=== PATIENT | male | born 1960 | race Caucasian/White ===

== ENCOUNTER → 2020-06-05 15:05 | Outpatient (CLI) | payer OTHER, SELFPAY ==
--- NOTE | ~2020-06-05 | MR_ITS ---
EXAMINATION: MR cervical spine wo con EXAM DATE: 06/05/2020 15:54 INDICATION: Neck pain, bilateral shoulder and arm pain. TECHNIQUE: Multi-sequential, multiplanar MR images of the cervical spine were obtained without contra st. Axial T2, axial T2 MERGE sequence. Sagittal T1, T2, T2 fat saturation images also obtained. Th ere is no prior study for comparison. FINDINGS: There is moderate disc disease at C5-6 and 6-7. There is 2 mm anterolisthesis C4 on C5. Th ere is 3 mm anterolisthesis C7 on T1. The vertebral bodies are otherwise aligned. The spinal cord si gnal intensity and intrinsic morphology is normal. Cervicomedullary junction is normal in appearance. Level by level evaluation: C2-C3: Disc does not extend beyond the endplate margin. Uncovertebral joint arthropathy: None. Facet joint arthropathy: Mild to moderate right, mild left. Neural foraminal stenosis: No stenosis. Central canal stenosis: No stenosis. C3-C4: There is a mild diffuse disc bulge. Uncovertebral joint arthropathy: Mild bilateral. Facet joint arthropathy: Mild to moderate bilateral. Neural foraminal stenosis: Mild left. Central canal stenosis: No stenosis. C4-C5: There is a mild diffuse disc bulge. Uncovertebral joint arthropathy: Mild bilateral. Facet joint arthropathy: Moderate bilateral. Neural foraminal stenosis: Mild right. Central canal stenosis: No stenosis. C5-C6: There is a mild to moderate diffuse disc bulge. Uncovertebral joint arthropathy: Moderate bilateral. Facet joint arthropathy: Moderate bilateral. Neural foraminal stenosis: Moderate left, mild to moderate right. Central canal stenosis: Mild. C6-C7: There is a mild to moderate diffuse disc bulge. Uncovertebral joint arthropathy: Moderate to severe. Facet joint arthropathy: Mild to moderate. Neural foraminal stenosis: Moderate right, mild to moderate left. Central canal stenosis: Mild. C7-T1: Disc does not extend beyond the endplate margin. Uncovertebral joint arthropathy: Moderate left, mild right. Facet joint arthropathy: Moderate to severe left, moderate right. Neural foraminal stenosis: Moderate bilateral. Central canal stenosis: No stenosis. IMPRESSION: 1. Overall moderate lower cervical spondylosis. Reviewed, dictated and finalized at location A.
== END ==
PROVIDERS: Visit Provider Psychiatry & Neurology Neurology
DX: M48.02 Spinal stenosis, cervical region (principal); M47.892 Other spondylosis, cervical region
CPT/HCPCS: 72141

== ENCOUNTER 2024-10-09 07:49 | Emergency (ER) | payer OTHER, SELFPAY ==
--- NOTE | ~2024-10-09 | XR_ITS ---
EXAMINATION: XR shoulder RT min 2V DATE: 10/09/2024 09:00 INDICATION: Right shoulder injury. TECHNIQUE: 4 views of right shoulder were obtained. COMPARISON: None. FINDINGS: Alignment is normal. No fracture. There is mild osteoarthritis of glenohumeral joint and se tessy osteoarthritis of acromioclavicular joint. IMPRESSION: 1. Polyarticular osteoarthritis. Reviewed, dictated and finalized at location A. [place] CASHIER
--- NOTE | ~2024-10-09 | XR_ITS ---
XR shoulder LT min 2V Ordering provider: Karla Ponce III, DO History: . injury . Comparison: None. FINDINGS: BONES: No acute fracture or dislocation. JOINT SPACES: The acromioclavicular joint shows mild osteoarthritic changes. The glenohumeral joint i s normal. SOFT TISSUES: Normal. IMPRESSION: No acute osseous abnormality left shoulder. Reviewed, dictated and finalized at location A. WARE MANAGER
--- NOTE | ~2024-10-09 | XR_ITS ---
EXAMINATION: XR humerus RT DATE: 10/09/2024 09:00 INDICATION: Right humerus injury. TECHNIQUE: 2 views of right humerus were obtained. COMPARISON: None. FINDINGS: Bone alignment is normal. No fracture. There is mild osteoarthritis of glenohumeral joint a nd severe osteoarthritis of acromioclavicular joint. IMPRESSION: 1. Polyarticular osteoarthritis. Reviewed, dictated and finalized at location A. RION ADMINISTRATOR
--- NOTE | ~2024-10-09 | XR_ITS ---
EXAMINATION: XR humerus LT DATE: 10/09/2024 09:00 INDICATION: Left humerus injury. TECHNIQUE: 2 views of left humerus were obtained. COMPARISON: None. FINDINGS: Alignment is normal. No acute fracture. There are old healed left rib fractures. There is m ild osteoarthritis of glenohumeral joint and severe osteoarthritis of the acromioclavicular joint. IMPRESSION: 1. Polyarticular osteoarthritis. Reviewed, dictated and finalized at location A. ING MACHINE OPERATOR ELECTROSLAG
[2024-10-09 07:55] VITALS: BP 175/87; PULSE 71; RESP 20; TEMP 36.5; O2SAT 97
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
[2024-10-09 09:22] VITALS: BP 170/88; PULSE 77; RESP 20; TEMP 36.6; O2SAT 98
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
== END 2024-10-09 10:52 | disposition home or self-care (01) ==
PROVIDERS: Emergency Provider Emergency Medicine
DX: S46.211A Strain of muscle, fascia and tendon of other parts of biceps, right arm, initial encounter (principal); F17.210 Nicotine dependence, cigarettes, uncomplicated; Z79.84 Long term (current) use of oral hypoglycemic drugs; Z79.899 Other long term (current) drug therapy; M19.012 Primary osteoarthritis, left shoulder; M19.011 Primary osteoarthritis, right shoulder; V28.49XA Other motorcycle driver injured in noncollision transport accident in traffic accident, initial encounter
CPT/HCPCS: 73030; 73060; 99284; A4565

== ENCOUNTER 2024-10-16 12:08 | Outpatient (CLI) | payer OTHER, SELFPAY ==
--- NOTE | ~2024-10-16 | MR_ITS ---
EXAMINATION: MR elbow RT wo con DATE: 10/16/2024 12:45 INDICATION: Right biceps tendon rupture post lifting injury one week prior TECHNIQUE: Magnetic resonance imaging (MRI) of the right elbow was performed without intravenous cont rast. Sequences included coronal, axial, and sagittal PD-weighted FS FSE and coronal, axial, and sagi ttal PD-weighted FSE. COMPARISON: None FINDINGS: Osseous/other: Normal alignment. Normal marrow signal with no marrow edema, fracture, osteochondral lesion or patho logic marrow replacing process. Mild osteoarthritis with mild nonuniform cartilage loss and small mar ginal osteophytes involving all 3 compartments of the elbow joint. Tendons: Triceps and brachialis tendons are normal. There is a full-thickness avulsion of the radial insertion of the biceps brachii tendon which is retracted 8 cm proximally and with possible reflection of the retracted tear margin. There is moderate tendinopathy of the distal 2 cm of the retracted tendon. Sma ll fluid collection, potentially hematoma about the retracted portion of the tendon and extending dis tally along the tract of the torn tendon. There is some likely reactive soft tissue edema in the simu ltaneous tissues along the anteromedial aspect of the distal upper arm, elbow and proximal forearm. C ommon flexor tendon wad is normal. Small region of thin linear fluid signal intensity along the footp late of the common extensor tendon wad including between the humeral epicondyle and small amount of h eterotopic ossification in the dependent likely sequela of chronic partial tear. No surrounding soft tissue edema to suggest acute injury/reinjury. Ligaments: There is a partial tear along the humeral insertion of the radial collateral ligament. The lateral ul yisel collateral ligament remains normal. There is small amount of heterotopic ossification at the radi al side of the ulnar collateral complex consistent with sequela of chronic partial tear. Cubital tunnel: Cubital tunnel is unremarkable with normal signal and caliber of the ulnar nerve. Fluid: Physiologic amount of fluid the elbow joint. IMPRESSION: 1. Likely acute complete avulsion of the radial insertion of the biceps brachii tendon with 7 cm prox imal retraction of the torn tendon. 2. Chronic sprain of the ulnar collateral ligament complex with small amount of heterotopic ossificat ion near its humeral insertion and partial tear of the humeral insertion of the radial collateral lig ament. 3. Likely chronic partial tear and secondary small amount of heterotopic ossification at the humeral origin of the common extensor tendon wad. Reviewed, dictated and finalized at location A. STICS ACCOUNT MANAGER IMPRESSION: 1. Likely acute complete avulsion of the radial insertion of the biceps brachii tendon with 7 cm proximal retraction of the torn tendon. 2. Chronic sprain of the ulnar collateral ligament complex with small amount of heterotopic ossification near its humeral insertion and partial tear of the hu meral insertion of the radial collateral ligament. 3. Likely chronic partial tear and secondary small amount of heterotopic ossifi cation at the humeral origin of the common extensor tendon wad.
== END 2024-10-16 12:09 | disposition home or self-care (01) ==
PROVIDERS: PCP Orthopaedic Surgery; Visit Provider Orthopaedic Surgery
DX: S46.211A Strain of muscle, fascia and tendon of other parts of biceps, right arm, initial encounter (principal); X58.XXXA Exposure to other specified factors, initial encounter
CPT/HCPCS: 73221

== ENCOUNTER 2024-10-17 10:48 | Outpatient (CLI) | payer OTHER, SELFPAY | END 2024-10-17 10:49 | disposition home or self-care (01) | LOC: ANHAUDIO 10:50 | PROVIDERS: PCP Orthopaedic Surgery; Visit Provider Nurse Practitioner Family | DX: H90.41 Sensorineural hearing loss, unilateral, right ear, with unrestricted hearing on the contralateral side (principal) | CPT/HCPCS: 92557; 92567 ==

== ENCOUNTER 2024-10-19 03:47 | Day surgery (SDC) | payer OTHER, SELFPAY ==
[2024-10-18 13:46] VITALS: BMI 28.3
--- NOTE | 2024-10-18 14:07 | PC.NURSE ---
Report to the Outpatient Waiting Room, entrance under the green pavilion located off [facility], at time _1130AM on date _10/19/24 . Planned Procedure Time: ___1330PM .? Time changes happen often and if your time is changed the preop area will call you the afternoon before. - You and your visitor will be asked to self-screen and do not enter if you have any COVID symptoms. Please call surgeon if you need to reschedule. - A mask is optional within the hospital at this time. Patients may have clear liquids (water, carbonated beverages, clear teas, apple juice) until 3 hours prior to surgery with a maximum of 20 ounces. - No food from midnight until time of surgery and no smoking. This includes no chewing gum, candy or mints. Take only the following medications with a SIP of water on the morning of surgery: ____PAIN PILL NEEDED ONLY DO NOT STOP ANY OF YOUR OTHER PRESCRIPTION MEDICATIONS PRIOR TO SURGERY EXCEPT THE FOLLOWING Medications to discontinue per physician DO NOT TAKE ANY NAPROSYN OR MOTRIN TODAY OR TOMORROW Date to take last dose____10/18/24 Please no make-up, nail irish, hairspray, perfume, deodorant, or body powder the day of surgery.? No jewelry (including any body piercings) or valuables the day of surgery, leave them at home.? Please take a shower or bath the night before, or the morning of, surgery with an antibacterial soap.? Wear comfortable, loose fitting clothing.? Children are encouraged to wear pajamas. - Jewelry must be removed prior to entering the operating room.? Rings and piercings that are not removed may be cut off. - The hospital will not accept responsibility for valuables.? - Please leave all valuables, including medications, at home the day of surgery. If you are going home after surgery, a licensed special needs bus driver must drive you home.? - NO public transportation without another adult if you receive anesthesia. - We recommend that an adult stay with you for 24 hours following discharge. - We also recommend that you do not drive, make important decision, drink alcoholic beverages, or take any drugs that were not prescribed by your health care provider for at least 24 hours after your discharge time. Follow any additional instructions given to you from your surgeon. Telephone instructions given to ___DEN and asked if any additional questions and then verbalized understanding. Patient advised to call surgeon office or pre surgery nurse liaison [phone] if any additional questions.
--- NOTE | 2024-10-18 15:57 | WPDANESEPP ---
Anes - Eval Pre Procedure Procedure: Operation Date: 10/19/24 13:30 Proposed Procedures p Right Distal Biceps Tendon Repair - Fred Ayon MD Date/Time: 10/18/24 15:57 Pre Op Diagnosis: Ruptured biceps tendon Patient Data Age: 64 Gender: M Height: 1.88 m Weight: 100 kg Allergies Allergy/AdvReac Type Severity Reaction Status Date / Time No Known Allergies Allergy Verified 10/18/24 14:14 Home Medications Medication Instructions Recorded Confirmed Type albuterol sulfate 90 mcg/actuation 2 inh inhalation Q4-6H PRN SOB 04/24/21 10/18/24 History breath activated powder inhaler (ProAir RespiClick) ibuprofen 400 mg tablet 400 mg PO Q6H 04/24/21 10/18/24 History metformin 500 mg tablet 1,000 mg PO DAILY 04/24/21 10/18/24 History empagliflozin 10 mg tablet 25 mg PO DAILY 10/16/24 10/18/24 History (Jardiance) hydrocodone 5 mg-acetaminophen 325 1 tablet PO Q6H PRN Pain (Scale 10/18/24 10/18/24 History mg tablet Score 4-6) naproxen 500 mg tablet (Naprosyn) 500 mg PO BID PRN Pain (Scale 10/18/24 10/18/24 History Score 1-3) olmesartan 40 mg tablet 40 mg PO DAILY 10/18/24 10/18/24 History rosuvastatin 20 mg tablet 20 mg PO DAILY 10/18/24 10/18/24 History Patient hx anesthesia problems: none Family hx anesthesia problems: none Results Review: All pre-operative results and documents have been reviewed as part of the pre-operative evaluation. [facility] Past Medical History Medical History Cervical radiculopathy Diabetes Hyperlipemia Hypertension Smoker Social History Social History (Updated 10/17/24 @ 09:38 by Haleigh Olmos CMA) Smoking packs per day: 1 Smoking cigarettes per day: 20.0 Years smoked: 40 Smoking pack-years: 40.00 Smoking status: Current every day smoker Tobacco type: cigarettes Alcohol intake: current Substance use: current Substance use type: marijuana Last use: 10/15/24 Do You Feel Safe in your Home?: Yes Lack of Transportation: No Lack of Food: Never True Current Housing: I Have Housing Concerned About Future Housing: No Difficulty Paying Gas/Electric Bills: No Difficulty Paying for Meds: No Currently Unemployed: No Education: High School Diploma/GED Difficulty w/ Childcare or Family Care: No Living arrangements: with family Spiritual care concerns: No Exam Day of Procedure 10/18/24 15:57
[2024-10-19] VITALS (7 sets, daily range): BP systolic 128–140; BP diastolic 68–98; PULSE 55–93; RESP 12–19; TEMP 36.1–36.4; O2SAT 96–100
--- NOTE | 2024-10-19 12:04 | ECG_ITS ---
Test Date: 2024-10-19 12:18:54 Measurements Intervals Independence Rate: 70 P: 71 ID: [id number] QRS: -3 QRSD: 104 T: 42 QT: 349 QTc: 378 Interpretive Statements SINUS RHYTHM No previous ECG available for comparison Electronically Signed On 10-19-2024 13:58:21 TRANSIT MECHANIC by Dhaval Tillman M.D.
[2024-10-19 12:30] LABS: Glucose Point of Care 99 mg/dl (65-105)
[2024-10-19] MEDS: KETOROLAC 15 MG/ML VIAL (*BKC) IV PUSH (12:30)
[2024-10-19] MEDS: ACETAMINOPHEN 500 MG TABLET 1000 MG PO (12:30)
[2024-10-19] MEDS: LACTATED RINGERS 1,000 ML 30 ML IV CONT ×2 (12:30→16:10)
[2024-10-19 12:52] LABS: Anion Gap 5 mmol/L (4-12); Blood Urea Nitrogen 16 mg/dL (9-20); Calcium 10.9 mg/dL (8.4-10.2); Carbon Dioxide 26 mmol/L (22-30); Chloride 109 mmol/L (98-107); Estimated CRCL calculation 97 ml/min; Estimated Glomerular Filt Rate > 60; Glucose 103 mg/dL (65-110); Potassium 4.6 mmol/L (3.4-5.0); Sodium 140 mmol/L (137-145)
--- NOTE | 2024-10-19 13:19 | WPDHPUPDATE1 ---
History and Physical Update Update Date/Time: 10/19/24 13:19 History and Physical has been reviewed, including an updated exam of the patient. There are NO changes in the patient's condition. Risks, benefits, and alternatives have been discussed and questions answered. Patient agrees to proceed with procedure.
--- NOTE | 2024-10-19 13:49 | P.PNAN_ITS ---
Anes - Eval Pre Procedure Procedure: Operation Date: 10/19/24 13:30 Proposed Procedures p Right Distal Biceps Tendon Repair - Fred Ayon MD Date/Time: 10/19/24 13:49 Pre Op Diagnosis: Ruptured biceps tendon Patient Data Age: 64 Gender: M Height: 1.88 m Weight: 95.8 kg Last Vital Signs Temp 36.4 C 10/19/24 12:30 Pulse 93 10/19/24 12:30 Resp 14 10/19/24 12:30 BP 140/90 10/19/24 12:30 Pulse Ox 98 10/19/24 12:30 O2 Del Method Room Air 10/19/24 12:30 Allergies Allergy/AdvReac Type Severity Reaction Status Date / Time No Known Allergies Allergy Verified 10/19/24 12:51 Home Medications Medication Instructions Recorded Confirmed Type albuterol sulfate 90 mcg/actuation 2 inh inhalation Q4-6H PRN SOB 04/24/21 10/18/24 History breath activated powder inhaler (ProAir RespiClick) ibuprofen 400 mg tablet 400 mg PO Q6H 04/24/21 10/18/24 History metformin 500 mg tablet 1,000 mg PO DAILY 04/24/21 10/18/24 History empagliflozin 10 mg tablet 25 mg PO DAILY 10/16/24 10/18/24 History (Jardiance) hydrocodone 5 mg-acetaminophen 325 1 tablet PO Q6H PRN Pain (Scale 10/18/24 10/18/24 History mg tablet Score 4-6) naproxen 500 mg tablet (Naprosyn) 500 mg PO BID PRN Pain (Scale 10/18/24 10/18/24 History Score 1-3) olmesartan 40 mg tablet 40 mg PO DAILY 10/18/24 10/18/24 History rosuvastatin 20 mg tablet 20 mg PO DAILY 10/18/24 10/18/24 History oxycodone-acetaminophen 5 mg-325 1 - 2 tablet PO Q4-6H PRN pain 7 10/19/24 Rx mg tablet days #30 tabs Laboratory Tests 10/19/24 10/19/24 12:16 12:28 Sodium 140 mmol/L (137-145) Potassium 4.6 mmol/L (3.4-5.0) Chloride 109 H mmol/L (98-107) Carbon Dioxide 26 mmol/L (22-30) Anion Gap 5 mmol/L (4-12) BUN 16 mg/dL (9-20) Creatinine 0.80 mg/dL (0.7-1.3) Estim Creat Clear Calc 97 ml/min Estimated GFR > 60 (59 - ) Glucose 103 mg/dL (65-110) POC Capillary Glucose 99 mg/dl (65-105) Calcium 10.9 H mg/dL (8.4-10.2) Patient hx anesthesia problems: none Family hx anesthesia problems: none Results Review: All pre-operative results and documents have been reviewed as part of the pre- operative evaluation. [facility] Past Medical History Medical History Cervical radiculopathy Chronic pain COPD (chronic obstructive pulmonary disease) Diabetes Hyperlipemia Hypertension CARYL (obstructive sleep apnea) Smoker Social History Social History (Updated 10/17/24 @ 09:[address] [facility]) Smoking packs per day: 1 Smoking cigarettes per day: 20.0 Years smoked: 40 Smoking pack-years: 40.00 Smoking status: Current every day smoker Tobacco type: cigarettes Alcohol intake: current Substance use: current Substance use type: marijuana Last use: 10/15/24 Do You Feel Safe in your Home?: Yes Lack of Transportation: No Lack of Food: Never True Current Housing: I Have Housing Concerned About Future Housing: No Difficulty Paying Gas/Electric Bills: No Difficulty Paying for Meds: No Currently Unemployed: No Education: High School Diploma/GED Difficulty w/ Childcare or Family Care: No Living arrangements: with family Spiritual care concerns: No Exam Day of Procedure 10/19/24 13:49 Patient weight: overweight Heart: regular rate and rhythm Airway: Mallampati scale class 1 and special considerations poor dentition Neurological: alert and oriented
--- NOTE | 2024-10-19 13:51 | P.PNAN_ITS ---
Anes - Eval Final PreProcedure Day of Procedure 10/19/24 13:51 Patient weight: overweight Heart: regular rate and rhythm Lungs: clear to auscultation Airway: Mallampati scale class 1 Neurological: alert and oriented Last oral intake: >/= 8 hours ASA classification: III Emergent: no Anesthetic plan: proceed Anesthesia type and monitoring: general ETT and standard monitoring Results Review: All pre-operative results and documents have been reviewed as part of the pre- operative evaluation. Informed Consent: The patient's anesthetic plan and its attendant risks and benefits were discussed with the patient/family/POA. Questions were solicited and answers provided to the satisfaction of the patient/family/POA.
[2024-10-19] MEDS: ceFAZolin 2 GM/D5W 50 ML 2 GM/50 ML BAG IVPB (14:02)
[2024-10-19] MEDS: BUPivacaine HCL 0.5% PF 30 ML VIAL 10 ML INFILTRATE (14:37)
[2024-10-19] MEDS: fentaNYL CITRATE INJ (*CRX) 100 MCG/2 ML VIAL 25 MCG IV PUSH ×4 (16:07→16:22)
[2024-10-19 16:48] LABS: Glucose Point of Care 109 mg/dl (65-105)
[2024-10-19] MEDS: oxyCODONE HCL (*CRX) 5 MG TAB IR PO (17:00)
--- NOTE | 2024-10-19 17:08 | W.PM.PROC2 ---
Procedure Note - Detailed Date of Procedure 10/19/24 Pre-op Diagnosis Ruptured distal biceps tendon, right elbow. Post-op Diagnosis Same Procedure Performed Distal biceps tendon repair, right elbow. Surgeon Fred Ayon MD Anesthesia General Description of Procedure Preoperative antibiotics were given. A general anesthetic was administered. The arm was prepped and draped in the usual sterile fashion with a well-padded tourniquet high on the arm. The tourniquet was inflated and a transverse incision was created 3 centimeters distal to the elbow flexion crease. Careful blunt dissection was used to dissect the interval between the pronator and muscles and the brachioradialis. Careful dissection was brought down to the deep veins which were ligated as necessary. The recurrent radial artery was ligated. The zone of injury was identified. The forearm was carefully supinated to protect the radial nerve and its branches. The distal biceps tendon was identified in the proximal portion of the wound using digital manipulation. A whipstitch was placed in the tendon after carefully debriding the damaged end. The tendon was confirmed to be passable through the 8 millimeter guide. At this point the radial tuberosity was clearly identified and exposed. Care was taken to maintain supination and limit lateral retraction. The guide pin was drilled through both cortices. The pin was angled slightly ulnarly. The proximal cortex was over reamed to 8 millimeters. The Endobutton was inserted through the distal cortex and deployed. The graft was seated into the radius very nicely. The interference screw was placed with excellent purchase. The screw was 7 millimeters in diameter. A BioComposite screw was used. Additional fixation was obtained by suturing the free limb to the tendon and tying it through the other suture limb which was brought up through the center cannula of the screw. The repair was quite melendez. Copious antibiotic irrigation was used throughout the procedure to remove any loose bone fragments. The tourniquet was released and meticulous hemostasis was confirmed. The wound was closed with interrupted 3-0 Monocryl suture followed by a running 4-0 Monocryl suture and Steri-Strips. Sterile light dressing, and posterior splint was applied with a sling. The patient was brought to the recovery room in stable condition. There were no complications Implants Arthrex endo-button with BioComposite interference screw. Estimated Blood Loss 10 Tourniquet Time Total Tourniquet Time: 54 Drains No Packing No Pathology None sent Complications No immediate complications Condition Stable Disposition PACU [facility] Billing Surgery - Charge Forward: Surgery Billing
== END 2024-10-19 17:27 | disposition home or self-care (01) ==
PROVIDERS: Anesthesiology; PCP Nurse Practitioner Family; Visit Provider Orthopaedic Surgery
PROC: (CPT 24341; principal; 2024-10-19 13:30)
DX: S46.211A Strain of muscle, fascia and tendon of other parts of biceps, right arm, initial encounter (principal); X50.0XXA Overexertion from strenuous movement or load, initial encounter; I10 Essential (primary) hypertension; E78.5 Hyperlipidemia, unspecified; E11.9 Type 2 diabetes mellitus without complications; Z79.51 Long term (current) use of inhaled steroids; Z79.84 Long term (current) use of oral hypoglycemic drugs; F17.210 Nicotine dependence, cigarettes, uncomplicated; F12.90 Cannabis use, unspecified, uncomplicated
CPT/HCPCS: 24342; 36415; 80048; 82948; 93005; A9270; C1713; J0690; J1100; J1885; J2405; J2704; J3010; J7120

== ENCOUNTER 2025-06-15 14:23 | Outpatient (CLI) | payer OTHER, SELFPAY ==
--- OUTSIDE RECORDS SUMMARY | 2025-06-15 14:30 | XMS_ITS | Referral Summary ---
Author Organization [facility] Address [address] [place] [address] Care Team Providers Care Kiln Stacker Name Role Phone Sonal Cancino MD Primary Care Provider + Allergies No known active allergies Medications HYDROcodone-akash taminophen (NORCO) 10-325 mg per tabletIndicatio ns:Pain TK 1 T PO Q 8 H PRN P 0 9 Active ibuprofen (ADVIL,MOTRIN) 200 mg tab/cap Take 800 mg by mouth daily as needed. Active losartan (COZAAR) 50 mg tablet Take 50 mg by mouth every morning. 4 8 Active metFORMIN XR (GLUCOPHAGE XR) 500 mg 24 hr tablet TAKE 2 TABLETS BY MOUTH DAILY IN THE MORNING 2 9 Active traZODone (DESYREL) 100 mg tablet TAKE 1/2 TO 1 TABLET BY MOUTH AT BEDTIME NEEDED FOR INSOMNIA 4 8 Active ALBUTEROL SULFATE INHAL Inhale 4 (four) times a day as needed. Active budesonide-glyc opyr-formoterol 160-9-4.8 mcg/actuation HFA aerosol inhaler every 12 hours Activ e empagliflozin (JARDIANCE) 25 mg tablet Jardiance 25 mg tablet Active olmesartan (BENICAR) 40 mg tablet olmesartan 40 mg tablet TAKE 1 TABLET BY MOUTH ONCE DAILY Active rosuvastatin (CRESTOR) 20 mg tablet rosuvastatin 20 mg tablet Active ofloxacin (OCUFLOX) 0.3 % ophthalmic solution Administer 1 drop into the right eye 4 (four) times a day 4 times a day (when you wake up, lunch, dinner, bedtime) 5 mL 2 Active Active Problems Problem Noted Date Diagnosed Date Bilateral retinal lattice degeneration 2 Assessment & Plan (10/15/2022 11:35 AM STAIR BUILDER): OS inferior lattice LRP today at slit lamp, may need additional with indirect, re-examine next visit RTC 4 weeks Retinal detachment, rhegmatogenous, right eye Overview (05/20/2022): Mac-off RRD s/p PPV/AFx/C3F8 on 05/19/22 w/ Dr Robertson Assessment & Plan (10/15/2022 10:19 AM STAIR BUILDER): Mac off RRD s/p PPV/AFx/C3F8 to the right eye on 05/19/22 (Meme) - doing well, he will find optom for refraction, can follow optom long chain beamer for monitoring Assessment & Plan (08/19/2022 1:57 PM CDT): Mac off RRD s/p PPV/AFx/C3F8 to the right eye on 05/19/22 (Meme) - doing well, he will find optom for refraction, cleared to return to work. High myope, Original exam found lattice degen, offered ppx barrier laser, patient opts to return in a month or so to perform Advised for DFE yearly to check on both eyes afterward Assessment & Plan (06/17/2022 1:45 PM CDT): POM#1 s/p PPV/AFx/C3F8 to the right eye on 05/19/22. Doing well. Finish PF taper. Signs and symptoms of retinal detachment, tears and endophthalmitis, elevated pressure reviewed with patient. Post Op Position: none Altitude precautions were reviewed with patient. Assessment & Plan (05/27/2022 5:22 PM CDT): One week status post PPV/AFx/C3F8 to the right eye on 05/19/22. Doing well. Taper PF 3-2-1-0 q1w Return to clinic in 3 weeek. Signs and symptoms of retinal detachment, tears and endophthalmitis, elevated pressure reviewed with patient. Post Op Position: none Altitude precautions were reviewed with patient. Assessment & Plan (05/20/2022 12:10 PM CDT): One day status post PPV/AFx/C3F8 to the right eye on 05/19/22. Doing well. Tobramycin 4x/day and Predforte 4x/day Return to clinic in one week. Signs and symptoms of retinal detachment, tears and endophthalmitis, elevated pressure reviewed with patient. Post Op Position:Left side down. Altitude precautions were reviewed with patient. No strenuous activity. Assessment & Plan (05/18/2022 12:59 PM CDT): Symptoms x 3-4 days Hx of CEIOL OU at [facility] 8-10 years ago OU - before CEIOL hx of high myopia Exam with bullous detachment superiorly OD. There is a suspicious area at about 1 oclock but no clear h/t/b on exam. There is likely a small pseudophakic break supeoriorly. We discussed options for repair. Given that I cannot definitively localize a tear, we will proceed with PPV/EL/AFx/gas OD. We will call to schedule surgery tomorrow PM. He does not take any blood thinners. I have asked that he be NPO after midnight. Surgery: PPV/EL/AFx/gas OD Anesthesia: MAC Attending(s): Will Fellow: Will Time: 60 minutes Preop appointment needed: none Spinal stenosis of cervical region 12/08/2017 Neck pain 12/08/2017 Parathyroid adenoma 02/06/2015 Hyperparathyroidism 01/07/2015 Social History Tobacco Use Types Packs/Day Years Used Date Smoking Tobacco: Every Day Cigarettes 2 47.6 Started: 1977 Smokeless Tobacco: Never Alcohol Use Standard Drinks/Week Comments Yes 1 (1 standard drink = 0.6 oz pur e alcohol) occasional AUDIT-C Answer Date Recorded Q1: How often do you have a drink containing alc ohol? Monthly or less 05/19/2022 Q2: How many drinks containi ng alcohol do you have on a typical day when you are drinking? 1 or 2 05/19/2022 Q3: How often do you have si x or more drinks on one occasion? 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 Gender Identity Not on file Sexual Orientation Not on file Last Filed Vital Signs Vital Sign Reading Time Taken Comments Blood Pressure 113/94 05/19/2022 12:30 PM CDT Pulse 58 05/19/2022 12:30 PM CDT Temperature 36.1 C (97 F) 05/19/2022 12:30 PM CDT Respiratory Rate 18 05/19/2022 12:30 PM CDT Oxygen Saturation 94% 05/19/2022 12:30 PM CDT Inhaled Oxygen Concentration - - Weight 93 kg (205 lb) 05/17/2022 1:42 PM CDT Height 190.5 cm (6' 3) 05/17/2022 1:42 PM CDT Body Mass Index 25.62 05/17/2022 1:42 PM CDT Plan of Treatment Not on file Insurance ([place]) [address] [facility]ICE [facility] H[facility]PP[facility] Address: [facility] [address] [place] [address] [facility]O Address: [place] [address] [facility]O Address: [place] [address] Advance Directives For more information, please contact: [phone] * Full Code (Latest Code Status on File) Date Activated Date Inactivated Comments 04/06/2019 12:25 PM 04/06/2019 7:28 PM * Full Code Date Activated Date Inactivated Comments 04/06/2019 12:25 PM 04/06/2019 12:25 PM * Full Code Date Activated Date Inactivated Comments 04/06/2019 12:25 PM 04/06/2019 12:25 PM Care Teams Kiln Stacker Relationship Specialty Start Date End Date Sonal Cancino MD PCP - General 12/24/17
--- OUTSIDE RECORDS SUMMARY | 2025-06-15 14:30 | XMS_ITS | Clinical Summary ---
Author Organization [facility] Address [address] [place] [address] Care Team Providers Care Manganese Wheeler Name Role Phone Sonal Cancino MD Primary [...] 2 Assessment & Plan (10/15/2022 11:35 AM RN OBSERVATION): OS inferior lattice LRP today at slit lamp, may need additional with indirect, re-examine next visit RTC 4 weeks Retinal detachment, rhegmatogenous, right eye Overview (05/20/2022): Mac-off RRD s/p PPV/AFx/C3F8 on 05/19/22 w/ Dr Robertson Assessment & Plan (10/15/2022 10:19 AM RN OBSERVATION): Mac off RRD s/p PPV/AFx/C3F8 to the right eye on 05/19/22 (Meme) - doing well, he will find optom for refraction, can follow optom buttermaker for monitoring Assessment & Plan (08/19/2022 1:57 [...] pain 12/08/2017 Parathyroid adenoma 02/06/2015 Hyperparathyroidism 01/07/2015 Surgical History Surgery Date Site/Laterality Comments MA NEUROPLASTY &/TRANSPOS ME JOANA NRV CARPAL TUNNE Neuroplasty Median Nerve At Carpal Tunnel - (Added by TW Conv) PARATHYROID GLAND SURGERY Parathyroid - (Added by TW Conv) MA NEPHROLITHOTOMY REMOVAL CALCULUS Lithotomy - (Added by TW Conv) CARPAL TUNNEL RELEASE Medical History Medical History Date Comments Hypertension Primary hyperparathyroidism Head injury Diabetes mellitus (HCC) COPD (chronic obstructive pulmonary disease) Migraine Family History Medical History Relation Name Comments Diabetes Mother Family history of diabetes mellitus - (Added by TW Conv) Diabetes Other 1 Family history of diabetes mellitus - (Added by TW Conv) Hypertension Other 2 Family history of hypertension - (Added by TW Conv) Coronary artery disease Other 3 Fami ly history of coronary artery disease - (Added by TW Conv) Anesthesia problems Neg Hx Relation Name Status Comments Mother Other 1 Other 2 Other 3 Social History Tobacco Use Types Packs/Day Years [...] on file Legal Sex Male 5:31 AM RN OBSERVATION Gender Identity Not on file Sexual Orientation Not on file Obstetrics History Last Filed Vital Signs Vital Sign Reading [...] 05/17/2022 1:42 PM CDT Plan of Treatment Health Maintenance Due Date Last Done Comments Colon Cancer Screening-Colonoscopy 1962 Depression Screening 1962 Hepatitis C Screening 1962 Prostate Cancer Screening-PSA 1962 DTaP/Tdap/Td Vaccine (1 - Tdap) 1973 Hepatitis B Screening 1980 Regular Well Visit/Exam 18-64 1980 Zoster Vaccine (1 of 2) 2012 Pneumococcal vaccine <65 (2 of 2 - PCV) 05/15/2015 05/15/2014 Covid-19 Vaccine (2 - 2023-2 5 season) 2024 03/28/2021 Influenza Vaccine (#1) 2025 , 09/23/2021, 08/17/2019, Additional history exists Insurance [address] CHOICE PLUS [address] CHOICE PLUS [address] CHOICE PLUS Advance Directives For more information, please contact: [phone] * Full Code (Latest Code Status on File) Date Activated Date Inactivated Comments 04/06/2019 12:25 PM 04/06/2019 7:28 PM * Full Code Date Activated Date Inactivated Comments 04/06/2019 12:25 PM 04/06/2019 12:25 PM * Full Code Date Activated Date Inactivated Comments 04/06/2019 12:25 PM 04/06/2019 12:25 PM Care Teams Manganese Wheeler Relationship Specialty Start Date End Date Sonal Cancino MD PCP - General 12/24/17
--- OUTSIDE RECORDS SUMMARY | 2025-06-15 14:30 | XMS_ITS | Clinical Summary ---
Author Organization [facility] Address [address] [place] [address] Care Team Providers Care Senior Java Software Developer Name Role Phone Rose Marie Bashir MD Primary Care Provider [phone] Source Comments [facility],non-owned Affiliates and Associated Physician Practices is amultiple site organization consisting of ambulatory clinics and hospital sitesin [place], [place]. This disclosure is being madepursuant to the Care Everywhere program and may not contain all information available regarding this patient. Last updated 18.[facility] Active Problems Problem Noted Date Diagnosed Date Age-related cataract 08/29/2015 Unspecified open wound of ot her part of head, initial encounter 06/09/2014 Closed fracture of lower end of left radius 05/2014 Presence of intraocular lens 05/18/2014 Laceration of scalp without foreign body 014 Nontraumatic subarachnoid hemorrhage 05/14/2014 Closed fracture of left forearm 05/14/2014 Closed fracture of shaft of left ulna 05/14/2014 Multiple closed fractures of ribs 05/14/2014 Contusion of lung 05/14/2014 Closed fracture of zygoma 05/14/2014 Liver disease 05/14/2014 Fracture of other specified skull and facial bones, unspecified side, initial encounter for closed fracture 05/14/2014 Other specified disorders of brain 05/14/2014 Disorder of bone 05/14/2014 Other nonspecific abnormal finding of lung field 05/14/2014 Closed fracture of vault of skull 05/14/2014 Closed fracture of first thoracic vertebra 05/14 Immunizations Immunization Administration Dates Next Due PNEUMOCOCCAL PPSV23 05/15/2014 Family History Medical History Relation Name Comments Glaucoma Neg Hx Social History Tobacco Use Types Packs/Day Years Used Date Smoking Tobacco: Every Day Cigarettes 1.5 50.1 Started: 05/12/1975 Alcohol Use Standard Drinks/Week Comments Yes 0 (1 standard drink = 0.6 oz pur e alcohol) Sex and Gender Information Value Date Recorded Sex Assigned at Not on file 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 Gender Identity Not on file Sexual Orientation Not on file Last Filed Vital Signs Vital Sign Reading Time Taken Comments Blood Pressure 137/79 07/25/2014 4:45 PM CDT Pulse 80 07/25/2014 4:45 PM CDT Temperature 36.6 C (97.8 F) 07/25/2014 4:45 PM CDT Respiratory Rate 20 07/25/2014 4:45 PM CDT Oxygen Saturation 97% 07/25/2014 4:45 PM CDT Inhaled Oxygen Concentration - - Weight 106.6 kg (235 lb) 08/09/2014 9:42 AM CDT Height 188 cm (6' 2) 08/09/2014 9:42 AM CDT Body Mass Index 30.17 08/09/2014 9:42 AM CDT Plan of Treatment Health Maintenance Due Date Last Done Comments COLOGUARD (AGES 45-75) - COL ON CA SCREENING 1962 COLON MONITORING 1962 COLONOSCOPY - COLON CA SCREENING 1962 CT COLONOGRAPHY - COLON CA SCREENING 1962 Colorectal Cancer Screening 1962 FIT - COLON CA SCREENING 1962 FLEX SIG - COLON CA SCREENING 1962 LIPID TESTING 1962 HIV SCREENING 1977 HEPATITIS C SCREENING 12/29/1979 DTAP/TDAP/TD VACCINES (1 - Tdap) 1981 ZOSTER VACCINE (1 of 2) 2012 PNEUMOCOCCAL VACCINE 50+ (2 of 2 - PCV) 05/15/2015 05/15/2014 COVID-19 VACCINE ( - 2023-2 5 season) 2024 DEPRESSION SCREENING 11/15/2024 INFLUENZA VACCINE (#1) 2025 Respiratory Syncytial Virus (RSV) Vaccine Pt: or over 60 yrs (1 - 1-dose 75+ series) 2037 HEPATITIS B VACCINE Aged Out No longe r eligible based on patient's age to complete this topic HIB VACCINE Aged Out No longer eligi ble based on patient's age to complete this topic HPV VACCINE Aged Out No longer eligi ble based on patient's age to complete this topic MENINGOCOCCAL (Group B) VACC INE SHARED DECISION-MAKING Aged Out No longer eligibl e based on patient's age to complete this topic MENINGOCOCCAL GROUPS A/C/Y/W VACCINE Aged Out No longer eligible b ased on patient's age to complete this topic Care Teams Senior Java Software Developer Relationship Specialty Start Date End Date Rose Marie Bashir MD [address] [place] [address] PCP - General 07/23/14
--- OUTSIDE RECORDS SUMMARY | 2025-06-15 14:30 | XMS_ITS | Encounter Summary ---
Author Organization [facility] Address [address] [place] [address] Phone Care Team Providers Care Bell Staff Name Role Phone Sonal Cancino MD Primary Care Provider + Encounter Details Date Type Department Care Team (Late st Contact Info) Description 05/17/2022 Ophth Exam [facility] Ophthalmology [address] [place] [address] [address] [place] [id number] Daisy Graf MD [address] [facility] [id number] [place] [id number] Social History Tobacco Use Types Packs/Day Years [...] on file Legal 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 Monthly or less 05/19/2022 9:28 AM Saima Vora RN Q2: How many drinks containing alcohol do you have on a typical day when you are drinking? 1 or 2 05/19/2022 9:28 AM Margaret Vora RN Q3: How often do you have six or more drinks on one occasion? Never 05/19/2022 9:28 AM Saima Vora RN documented as of this encounter Plan of Treatment Not on file documented as of this encounter Visit Diagnoses Not on filedocumented in this encounter Eye Exam Visual Acuity Right eye Left eye Near cc 20/25+3 20/20 Tonometry (Tonopen , 4:00 PM) Right eye Left eye Pressure 17 16 Pupils Dark Light Shape React APD Right eye 4 2 Round Brisk tr APD Left eye 4 2 Round Brisk None Visual Og Right eye Left eye Full Restrictions Partial outer inferior temporal, inferior nasal deficiencies Extraocular Movement Right eye Left eye Full Full Dilation Both eyes: 2.5% Phenylephrin e, 1.0% Mydriacyl @ 5:12 PM External Exam Right eye Left eye External Normal Normal Slit Lamp Exam Right eye Left eye Lids/Lashes Normal Normal Conjunctiva/Sclera White and quiet White and hebert et Cornea Clear Clear Anterior Chamber Deep and quiet Deep and quiet Iris Round and reactive Round and joana ctive Lens Pseudophakic Pseudophakic Vitreous Positive Salma's sign, syners is synersis Fundus Exam Right eye Left eye Disc Normal PPA C/D Ratio 0.2 0.6 Macula Retinal detachment o bscuring superior arcade c/f macular involving, PVD Normal Vessels Normal Normal Periphery Detachment superiorl y from 9 to 3 o'clock obscuring superior arcade; retinal break at 12 o'clock; lattice degeneration inferiorly on scleral depressed exam Lattice degeneration inferiorly, no breaks or detachement Care Teams Bell Staff Relationship Specialty Start Date End Date Sonal Cancino MD PCP - General 12/24/17 documented as of this encounter
--- NOTE | 2025-07-04 15:04 | P.PCNPFT_ITS ---
PFT Procedure Performed PFT Procedure Performed Spirometry with Pre/Post Bronchodilator Plethysmography (Lung Vol) Diffusing Cap (DLCO) Flow Vol Loop PFT Interpretation This is a pulmonary function test with pre and post-bronchodilator spirometry, plethysmography and diffusing capacity. The test was performed and results interpreted in accordance with the 2019 and 2005 ATS/ERS Task Force guidelines respectively using the Global Lung Function Initiative-2012 reference equations. Patient demonstrated good effort and cooperation. Reproducibility criteria were met. The quality of the pre bronchodilator spirometry maneuver was Grade A and post bronchodilator spirometry maneuver was Grade A. Findings: Spirometry: There is decreased maximal expiratory air flow at all lung volumes with a concave expiratory flow tracing. The contour the inspiratory flow tracing is normal. The pre bronchodilator FVC is 4.48 L, 101% predicted. The pre bronchodilator FEV1 is 2.20 L, 65% predicted. The pre bronchodilator FEV1: FVC ratio is 49%. The post bronchodilator FVC is 5.22 L, representing a 16% increase. The post bronchodilator FEV1 is 2.52 L, representing a 14% increase. The post bronchodilator FEV1: FVC ratio is 48%. Plethysmography: The total lung capacity is 8.72 L, 130% predicted. The func tional residual capacity is 5.21 L, 134% predicted. The residual volume is 4.24 L, 162% predicted. The Residual volume:Total lung capacity ratio is 49%. Diffusing capacity: The diffusing capacity unadjusted for hemoglobin and carboxyhemoglobin is 20.6, 80% predicted. The diffusing capacity adjusted for alveolar volume is 3.36, 86% predicted. Impression: There is a moderate obstructive abnormality. There is significant improvement after inhaling a single dose of albuterol. The total lung capacity, Functional residual capacity and Residual volume are increased with a normal Residual volume:Total lung capacity ratio consistent with large lungs. The diffusing capacity is normal. There are no prior studies for comparison
== END 2025-06-15 14:24 | disposition home or self-care (01) ==
PROVIDERS: PCP Internal Medicine; Visit Provider Internal Medicine Pulmonary Disease
DX: R06.09 Other forms of dyspnea (principal); R05.3 Chronic cough; Z91.09 Other allergy status, other than to drugs and biological substances; D89.9 Disorder involving the immune mechanism, unspecified
CPT/HCPCS: 94060; 94726; 94729

== ENCOUNTER 2025-07-06 15:47 | Outpatient (CLI) | payer OTHER, SELFPAY ==
--- NOTE | ~2025-07-06 | CT_ITS ---
EXAMINATION: CT diagnostic chest wo con DATE: 07/06/2025 16:05 INDICATION: Smoker. Pulmonary nodules. TECHNIQUE: Computed tomography (CT) of the chest was performed without intravenous contrast. The dose-length product was 135.58 mGy-cm. Automated exposure control and iterative reconstruction technique were employed. COMPARISON: None FINDINGS: Lung bases unremarkable. No thoracic lymphadenopathy. No significant pleural or pericardial effusion. There is a 4 cm left renal cysts. There is emphysema. There is a 5 mm right middle lobe nodule no additional pulmonary nodules or masses. Moderate thoracic spondylosis. No focal lytic or blastic lesions. IMPRESSION: 1. Right middle lobe nodule measuring 5 mm, likely benign. Recommend follow-up low dose CT chest in 12 months. Reviewed, dictated and finalized at location O.
== END 2025-07-06 15:48 | disposition home or self-care (01) ==
LOC: MICIMG 15:48
PROVIDERS: PCP Internal Medicine; Visit Provider Internal Medicine Pulmonary Disease
DX: R91.8 Other nonspecific abnormal finding of lung field (principal)
CPT/HCPCS: 71250